=== PATIENT | female | born 1995 | race Two or more races ===

== ENCOUNTER 2023-07-07 18:05 | Emergency (ER) | payer MEDICAID, OTHER ==
[~2023-07-07] VITALS: Ht 154.9 cm; Wt 81.8 kg
[2023-07-07 18:52] LABS: Basophils # (auto) 0 10 ^3/uL (0-0.2); Basophils % (auto) 0.2 % (0.0-2.0); Eosinophils # (auto) 0.1 10 ^3/uL (0-0.8); Eosinophils % (auto) 0.8 % (0.0-7.0); Hematocrit 45.5 % (36.0-46.0); Lymphocytes # (auto) 2.7 10 ^3/uL (0.4-5.4); Lymphocytes % (auto) 19.8 % (10.0-50.0); Mean Corpuscular Hemoglobin 29.5 pg (28.0-32.0); Mean Corpuscular Volume 89.2 fL (80.0-100.0); Monocytes # (auto) 0.9 10 ^3/uL (0-1.3); Monocytes % (auto) 6.4 % (0.0-12.0); Neutrophils # (auto) 9.9 10 ^3/uL (1.6-8.6); Neutrophils % (auto) 72.8 % (37.0-80.0); Nucleated Red Blood Cells % 0.2 %; White Blood Cell 13.6 10^3/uL (4.4-10.8)
[2023-07-07 19:09] LABS: Alanine Aminotransferase 30 U/L (7-40); Albumin 4.9 g/dL (3.2-4.8); Alkaline Phosphatase 101 U/L (46-116); Anion Gap 6 (5-15); Aspartate Aminotransferase 23 U/L (13-40); BUN/Creatinine Ratio 6.5 (10.0-20.0); Bilirubin, Total 0.4 mg/dL (0.2-1.0); Blood Urea Nitrogen 7 mg/dL (9-23); Calcium 9.8 mg/dL (8.5-10.1); Carbon Dioxide 25 mmol/L (20-30); Chloride 106 mmol/L (98-107); Glucose 98 mg/dL (74-106); Potassium 4.1 mmol/L (3.5-5.1); Sodium 137 mmol/L (136-145); Total Protein 7.9 g/dL (5.7-8.2)
[2023-07-07 20:38] LABS: Urine Bacteria None Seen /hpf (None Seen)
[2023-07-07 20:56] LABS: Urine Blood 1+ /uL (Negative); Urine Clarity Turbid (Clear); Urine Color Yellow (Yellow); Urine Hyaline Cast MANY /lpf (0 - 2); Urine Mucus MODERATE (None Seen); Urine Protein, UAD 2+ (Negative); Urine Specific Gravity 1.033 (1.001-1.035); Urine Urobilinogen Normal (Negative); Urine WBC 14 /hpf (0 - 5)
[2023-07-07] MEDS ORDERED: FAMO20TA10 PO (21:51)
[2023-07-07] MEDS ORDERED: ZOFR4T PO (21:51)
[2023-07-07] MEDS ORDERED: CEPH500C PO (21:51)
[2023-07-08] MEDS: LIDOCAINE VISCOUS 2% 15ML UD PO ONE (00:12)
[2023-07-08] MEDS: MAALOX PLUS or MAALOX 30 ML PO ONE (00:12)
[2023-07-08] MEDS: DONNATAL 5ml ORAL Elix (BELLADONNA ALK-PHENOBARB) PO ONE (00:12)
[2023-07-08] MEDS: ONDANSETRON ODT 4 MG TAB PO ONE (00:12)
[2023-07-08 00:13] VITALS: BP 119/88; PULSE 102; RESP 18; TEMP 98.2; O2SAT 99
== END 2023-07-08 00:32 | disposition home or self-care (01) ==
LOC: ER 18:05
DX: K29.70 Gastritis, unspecified, without bleeding (principal); N39.0 Urinary tract infection, site not specified; Z32.02 Encounter for pregnancy test, result negative
CPT/HCPCS: 36415; 76705; 80053; 81001; 81025; 83690; 85025; 99284; Q0162